=== PATIENT | male | born 1985 | race Caucasian/White ===

== ENCOUNTER 2017-05-08 12:42 | Emergency (ER) | payer OTHER ==
[2017-05-08 13:06] VITALS: BMI 29.7
--- NOTE | 2017-05-08 14:13 | PDOC ---
History of Present Illness - General Chief Complaint: Lightheaded Stated Complaint: DIZZINESS Time Seen by Provider: 05/08/17 13:48 History Source: Patient Exam Limitations: No Limitations - History of Present Illness Initial Comments: 31 yo M history vertigo presents with vertiginous symptoms x1 day. He states that he woke up dizzy today, worse with any movements of his head, both up/down and side to side. He had similar symptoms previously when he was in [facility]. He denies any recent alcohol intake, but may be eating salty food recently. No recent ear pain. Sensation is described as the room spinning, feeling uncertain of where the ground is when he tries to walk. Past History - Past Medical History Allergies/Adverse Reactions: Allergies Allergy/AdvReac Type Severity Reaction Status Date / Time shellfish derived Allergy Verified 05/08/17 13:04 COPD: No Other medical history: vertigo - Suicide/Smoking/Psychosocial Hx Smoking History: Never smoked Have you smoked in the past 12 months: No Information on smoking cessation initiated: No Hx Alcohol Use: No Drug/Substance Use Hx: No Substance Use Type: None Review of Systems - Review of Systems Able to Perform ROS?: Yes Comments:: GENERAL/CONSTITUTIONAL: No fever or chills. No weakness. HEAD, EYES, EARS, NOSE AND THROAT: No change in vision. No ear pain or discharge. No sore throat. CARDIOVASCULAR: No chest pain or shortness of breath. RESPIRATORY: No cough, wheezing, or hemoptysis. GASTROINTESTINAL: No nausea, vomiting, diarrhea or constipation. GENITOURINARY: No dysuria, frequency, or change in urination. MUSCULOSKELETAL: No joint or muscle swelling or pain. No neck or back pain. SKIN: No rash NEUROLOGIC: No headache, vertigo, loss of consciousness, or change in strength/ sensation. +Dizziness/room spinning. ENDOCRINE: No increased thirst. No abnormal weight change. HEMATOLOGIC/LYMPHATIC: No anemia, easy bleeding, or history of blood clots. ALLERGIC/IMMUNOLOGIC: No hives or skin allergy. *Physical Exam - Vital Signs Last Vital Signs Temp Pulse Resp BP Pulse Ox 98.7 F 77 18 145/86 100 05/08/17 13:04 05/08/17 13:04 05/08/17 13:04 05/08/17 13:04 05/08/17 13:04 - Physical Exam Comments: GENERAL: Awake, alert, and fully oriented, in no acute distress HEAD: No signs of trauma EYES: PERRLA, EOMI, sclera anicteric, conjunctiva clear ENT: Auricles normal inspection, hearing grossly normal, nares patent, oropharynx clear without exudates. Moist mucosa. TMs obscured by cerumen B/L. NECK: Normal ROM, supple, no lymphadenopathy, JVD, or masses LUNGS: Breath sounds equal, clear to auscultation bilaterally. No wheezes, and no crackles HEART: Regular rate and rhythm, normal S1 and S2, no murmurs, rubs or gallops ABDOMEN: Soft, nontender, normoactive bowel sounds. No guarding, no rebound. No masses EXTREMITIES: Normal range of motion, no edema. No clubbing or cyanosis. No cords, erythema, or tenderness NEUROLOGICAL: Cranial nerves II through XII grossly intact. Normal speech, normal gait. Motor and sensation intact. Symptoms elicited on movement of head from side to side. SKIN: Warm, Dry, normal turgor, no rashes or lesions noted. *DC/Admit/Observation/Transfer Diagnosis at time of Disposition: Vertigo - Discharge Dispostion Disposition: HOME Condition at time of disposition: Stable Admit: No - Referrals - Patient Instructions - Post Discharge Activity
[2017-05-08] MEDS ORDERED: MECLIZINE HCL 25 MG TABLET (FP) PO ONE ×2 (14:31→15:04)
[2017-05-08] MEDS ORDERED: MECLIZINE HCL 25 MG TABLET (FP) ONE ×2 (14:35→15:11)
[2017-05-08 15:17] VITALS: BP 132/72; TEMP 98.2
[2017-05-08 15:19] VITALS: PULSE 75
== END 2017-05-08 15:17 | disposition home or self-care (01) ==
LOC: JER 12:42
DX: R42 Dizziness and giddiness (principal)
CPT/HCPCS: 99283-25